=== PATIENT | male | born 1960 | race Caucasian/White ===

== ENCOUNTER 2016-09-23 14:32 | Emergency (ER) | payer MEDICARE, OTHER ==
[~2016-09-23 14:32] MED LIST: AT10 PO; AT25 PO; ATV.5 PO; BACDS PO; BACTROINT TOP; BEN25 PO; CALAMIN3 T; CALAMIN3 TOP; CELEXA20 PO; CELEXA40 MG PO; CHLORHEXIDINE TOP; DEX4 PO; FLONASE NAS; FLORASTOR250 MG PO; FOSAMAX70 MG PO; GGEXPUD PO; HYDROCERIN TOP; L-LYSINE ACE500 MG OR; L-LYSINE HCL500 MG PO; L-LYSINE500 M1 PO; MAXIMUM D3 PO; MELA3 PO; MIRALAXPKT PO; NASACORTAQ NAS; NEUR100 PO; RIFADIN 300 MG300 MG PO; RISP0.5 PO; RISP2 PO; RISP3 PO; SEPTRA DS1 TAB PO; SINGULAIR1 PO; SUDAFED PO; T PO; TEG100B PO; TEG200 PO; TRIDERM0.1 % T; VITAMIN D31000 UNIT PO; VITAMIN D400 UNI1 PO; ZANTAC300 MG PO; ZOCOR5 MG PO; ZYRTEC ALLGY10 MG PO
[2016-09-23 15:51] LABS: BASOPHILS 0.4 %; BASOPHILS ABSOLUTE 0.03 10/3/uL (0.0-0.16); EOSINOPHILS 1.2 %; EOSINOPHILS ABSOLUTE 0.09 10/3/uL (0.0-0.53); ER CBC TAT 0 Hrs 03 Mins; HEMATOCRIT 39.8 % (40.0-51.0); HEMOGLOBIN 13.6 g/dL (13.6-17.8); IMMATURE GRANULOCYTES 0.1 %; IMMATURE GRANULOCYTES ABSOLUTE 0.01 10/3/uL (0.0-0.11); LYMPHOCYTES 12.5 %; LYMPHOCYTES ABSOLUTE 0.92 10/3/uL (0.67-4.30); MEAN CORPUS HGB CONC 34.2 g/dL (32.0-36.0); MEAN CORPUSCULAR HEMOGLOB 30.4 pg (26.0-34.0); MEAN PLATELET VOLUME 11.1 fL (9.2-13.0); MONOCYTES 9.8 %; MONOCYTES ABSOLUTE 0.72 10/3/uL (0.21-1.20); PLATELET COUNT 220 10/3/uL (150-400); RED CELL COUNT 4.47 10/6/uL (4.7-6.1); WHITE BLOOD CELLS 7.4 10/3/uL (4.5-10.5)
[2016-09-23 15:55] LABS: MANUAL DIFF NO %
[2016-09-23 16:07] LABS: A/G RATIO 1.1 (0.7-1.9); ALKALINE PHOSPHATASE 95 U/L (45-117); CHLORIDE, SERUM 107 MMOL/L (96-112); CO2 (CARBON DIOXIDE) 30 MMOL/L (24-34); CREATININE 0.78 MG/DL (0.70-1.30); GFR AFRICAN AMERICAN 119 ML/MIN (>=60); GFR NON AFRICAN AMERICAN 102 ML/MIN (>=60); GLOBULIN 3.7 G/DL (2.5-4.1); POTASSIUM, SERUM 3.4 MMOL/L (3.5-5.3); SGOT(AST) 44 U/L (5-40); SGPT(ALT) 52 U/L (5-65); SODIUM, SERUM 143 MMOL/L (135-148); TOTAL BILIRUBIN 0.2 MG/DL (0-1.2); TOTAL PROTEIN 7.7 G/DL (6.0-8.5)
[2016-09-23 16:08] LABS: BUN (BLOOD UREA NITROGEN) 25 MG/DL (6-23); GLUCOSE, SERUM 119 MG/DL (60-99)
== END 2016-09-23 19:10 | disposition home or self-care (01) ==
LOC: ER 14:32
PROVIDERS: Hospitalist
DX: R45.1 Restlessness and agitation (principal); K59.00 Constipation, unspecified; K63.2 Fistula of intestine; F09 Unspecified mental disorder due to known physiological condition; Z79.899 Other long term (current) drug therapy
CPT/HCPCS: 74176; 80053; 83690; 85025; 96372; 99284; A9270-GY; J3486